=== PATIENT | male | born 1985 | race Caucasian/White ===

== ENCOUNTER 2016-11-18 06:28 | Inpatient (IN) | payer MEDICAID ==
[~2016-11-18] VITALS: Ht 175.3 cm; Wt 78.5 kg
[~2016-11-18 06:28] MED LIST: ALPR1TAB2 PO; PAX10 PO
[2016-11-18 06:35] VITALS: BP 109/75
--- NOTE | 2016-11-18 06:44 | NUR ---
PT TAKEN TO BED 5
--- NOTE | 2016-11-18 06:53 | NUR ---
Dr. Guerra evaluating patient at bedside.
--- NOTE | 2016-11-18 06:54 | NUR ---
CAME IN DUE TO ABDOMINAL PAIN 04/07, AND NAUSEA THIS MORNING. AWAKE, ALERT, ORIENTED. DENIES VOMITING NOR DIARRHEA. EXAMINED BY DR. WEBER AT BEDSIDE.
--- NOTE | 2016-11-18 06:57 | NUR ---
Dr. Galvan evaluating patient at bedside.
--- NOTE | 2016-11-18 06:58 | NUR ---
PATIENT REPORT ENDORSED TO URSZULA GONSALES FOR CONTINUITY OF CARE.
[2016-11-18] MEDS ORDERED: NACL 0.9% 1,000 ML IV ONE (07:02)
[2016-11-18] MEDS ORDERED: LORazepam 1 MG TAB PO ONE (07:05)
--- NOTE | 2016-11-18 07:39 | NUR ---
US AT BEDSIDE.
[2016-11-18 07:49] LABS: BASOPHILS # (AUTO) 0.1 K/uL (0.00-0.22); BASOPHILS % (AUTO) 1.1 % (0.0-2.0); EOSINOPHILS # (AUTO) 0.3 K/uL (0-0.4); EOSINOPHILS % (AUTO) 2.6 % (0.0-4.0); HEMATOCRIT 33.2 % (36-52); HEMOGLOBIN 11.3 g/dL (12.0-18.0); LYMPHOCYTES # (AUTO) 1.4 K/uL (2.0-11.5); LYMPHOCYTES % (AUTO) 12.5 % (20.5-51.1); MEAN CORPUSCULAR HEMOGLOBIN 32 pg (27-31); MEAN CORPUSCULAR HGB CONC 34 g/dL (33-37); MEAN CORPUSCULAR VOLUME 95 fL (80-94); MONOCYTES # (AUTO) 0.8 K/uL (0.8-1.0); MONOCYTES % (AUTO) 7.5 % (1.7-9.3); NEUTROPHILS # (AUTO) 8.2 K/uL (1.8-7.7); NEUTROPHILS % (AUTO) 76.3 % (42.2-75.2); PLATELET COUNT (AUTO) 568 K/uL (140-450); RED BLOOD CELL COUNT(AUTO) 3.51 MIL/uL (4.20-6.10); RED CELL DISTRIBUTION WIDTH 14.2 % (11.6-13.7); WHITE BLOOD COUNT (AUTO) 10.8 K/uL (4.8-10.8)
[2016-11-18 07:59] LABS: ANION GAP 9.6 (8-16); CALCIUM 9.2 mg/dL (8.5-10.1); CARBON DIOXIDE 31.5 mmol/L (21-32); CREATININE 0.8 mg/dL (0.6-1.3); POTASSIUM 3.1 mmol/L (3.5-5.1)
[2016-11-18 08:05] LABS: ALBUMIN 3.8 g/dL (3.4-5.0); TOTAL BILIRUBIN 0.4 mg/dL (0.0-1.0); TOTAL PROTEIN, SERUM 7.6 g/dL (6.4-8.2)
[2016-11-18] MEDS ORDERED: MORPHINE SULFATE 2 MG/ML SYR IVP ONE (08:05)
[2016-11-18] MEDS ORDERED: ONDANSETRON 4 MG/2 ML VIAL IVP ONE (08:05)
[2016-11-18] MEDS ORDERED: POTASSIUM CHLORIDE 20% 40 MEQ/15 ML UDC PO ONE (08:10)
[2016-11-18 08:24] LABS: APPEARANCE,URINE HAZY (CLEAR); BILIRUBIN,URINE NEGATIVE (NEGATIVE); BLOOD, URINE NEGATIVE (NEGATIVE); COLOR,URINE ORANGE (YELLOW); LEUKOCYTE ESTERASE ,URINE NEGATIVE (NEGATIVE); NITRITE, URINE NEGATIVE (NEGATIVE); PH,URINE 7.5 (5.0-9.0); PROTEIN,URINE TRACE (NEGATIVE); UGLUCOSE NEGATIVE (NEGATIVE)
[2016-11-18 08:26] LABS: BACTERIA,URINE OCCASSIONAL /HPF (None Seen); RBC,URINE NONE SEEN /HPF (0-5); SQUAMOUS EPITHELIAL CELL,UR 0-3 /LPF (0-3 (FEW)); WBC,URINE 0-3 /HPF (0-5)
[2016-11-18 08:28] LABS: MUCUS,URINE 1+ /LPF (None Seen)
--- NOTE | 2016-11-18 08:34 | NUR ---
CALLED TO GIVE REPORT TO MST RN; RN STATES WILL CALL BACK IN 5 MINUTES FOR REPORT; WILL CONTINUE TO MONITOR PT.
--- NOTE | 2016-11-18 08:54 | NUR ---
REPORT GIVEN TO JORGE RN; AWAITING ADMIT ORDERS TO BRING PT TO FLOOR; VSS AT THIS TIME; RR EVEN/UNLABORED; WILL CONTINUE TO MONITOR PT.
--- NOTE | 2016-11-18 09:49 | NUR ---
PT APPEARS TO BE RESTING COMFORTABLY IN BED; VSS AT THIS TIME; RR EVEN/UNLABORED; NO ACUTE DISTRESS NOTED; AWAITING ADMIT ORDERS; WILL CONTINUE TO MONITOR PT.
--- NOTE | 2016-11-18 10:32 | NUR ---
Patient will be admitted to care of DR. Jian ANDERSON. Admited to TELEMETRY. Will go to room 112B. Belongings list completed. Report to DRU PATEL.
[2016-11-18 10:45] VITALS: BP 120/85
[2016-11-18] MEDS ORDERED: ACETAMINOPHEN 325 MG TAB PO PRN (10:50)
[2016-11-18] MEDS ORDERED: ALPRAZOLAM 1 MG PO SCH (10:50)
[2016-11-18] MEDS ORDERED: HYDROcodone/APAP 10/325 MG 1 TAB TAB PO PRN (10:50)
--- NOTE | 2016-11-18 11:00 | NUR ---
Admitted from ED, with chief complaint of ABDOMINAL PAIN THAT STARTED THIS MORNING. PT AAOX4. NO SOB NOTED. NO C/O PAIN AT THIS TIME. IV TO RT AC PATENT AND INTACT. CHEST CLEAR. ABDOMEN SOFT, BOWEL SOUNDS PRESENT. LEFT KNEE SWELLING, NON-PITTING NOTED. PT IS S/P LEFT KNEE ARTHROSCOPY 3 WEEKS AGO IN [facility]. LEFT LOWER EXTREMITY ELEVATED WITH PILLOW. PT IS A31 y/o ,Male, Cooperative,oriented to call light, bed, phone,television, bathroom, smoking policy,visiting hours, procedures, ID bracelet on. Belongings list checked. INSTRUCTED PT TO CALL FOR ASSISTANCE, CALL LIGHT WITHIN REACH, PT VERBALIZED UNDERSTANDING.
[2016-11-18 12:00] VITALS: BP 127/83
[2016-11-18] MEDS ORDERED: PARoxetine 10 MG TAB PO SCH (12:20)
[2016-11-18 12:51] LABS: ALCOHOL, BLOOD < 3 mg/dL (<3); CHOL/HDL RATIO 4.5 (1-4.5); CHOLESTEROL 116 mg/dL (<200); HDL CHOLESTEROL 26 mg/dL (40-60); LDL (CALC) 75 mg/dL (60-100); TRIGLYCERIDES 77 mg/dL (30-150)
[2016-11-18 12:53] LABS: AMPHETAMINE, URINE NEG. ng/ml (NEG <=1000); BARBITURATE, URINE NEG. ng/ml (NEG <=200); BENZODIAZEPINE, URINE NEG. ng/mL (NEG <=200); CANNABINOID, URINE NEG. ng/mL (NEG <=50); COCAINE, URINE NEG. ng/mL (NEG <=300); OPIATE, URINE NEG. ng/mL (NEG <=2000); PHENCYCLIDINE SCREEN,URINE NEG. ng/mL (NEG <=25)
--- NOTE | 2016-11-18 13:00 | NUR ---
Remy TATE CAME TO SEE PT. NEW ORDERS GIVEN.
[2016-11-18] MEDS: MORPHINE SULFATE 2 MG/ML SYR IVP PRN ×2 (13:07→18:24)
[2016-11-18] MEDS: DEXT 5% /NACL 0.9% 1,000 ML IV SCH ×2 (13:09→21:27)
[2016-11-18] MEDS: ALPRAZolam 0.5 MG TAB PO PRN ×2 (13:18→20:08)
--- NOTE | 2016-11-18 15:00 | NUR ---
PT TOLERATED CLEAR LIQUIDS, NO N&V NOTED.
[2016-11-18 16:00] VITALS: BP 136/87
--- NOTE | 2016-11-18 17:55 | NUR ---
PT SLEEPING COMFORTABLY. NO SOB NOTED. NO SIGNS OF PAIN. PT'S FATHER AT THE BEDSIDE VISITING.
[2016-11-18] MEDS: ONDANSETRON 4 MG/2 ML VIAL IVP PRN (18:37)
--- NOTE | 2016-11-18 19:01 | NUR ---
PT AWAKE, NO SOB NOTED. ABDOMINAL PAIN SUBSIDING, PT JUST HAD PAIN MEDS 30 MINS AGO. WILL ENDORSE TO NEXT SHIFT NURSE FOR CONTINUITY OF CARE.
--- NOTE | 2016-11-18 19:30 | NUR ---
RECEIVED REPORT FROM DAY RN AT BEDSIDE, PATIENT IS AAO X4 RESTING IN BED, ON ROOM AIR, NO SOB OR SIGN OF DISTRESS AT THIS TIME, IV TO RAC PATENT AND INTACT, DENIES PAIN, DISCUSSED PLAN OF CARE WITH THE PATIENT, PATIENT VERBALIZED UNDERSTANDING, SAFETY MEASURES CHECKED, CALL LIGHT WITHIN REACH. WILL CONTINUE TO MONITOR.
--- NOTE | 2016-11-18 21:00 | NUR ---
ADMINISTERED XANAX PER MD ORDER, PATIENT RESTING IN BED WITH FAMILY AT BEDSIDE, NO SOB OR SIGN OF DISTRESS AT THIS TIME, CALL LIGHT WITHIN REACH. WILL CONTINUE TO MONITOR.
[2016-11-19] VITALS: BP 112/71
--- NOTE | 2016-11-19 00:10 | NUR ---
VITAL SIGNS STABLE, NO SOB OR SIGN OF DISTRESS AT THIS TIME, CALL LIGHT WITHIN REACH. WILL CONTINUE TO MONITOR.
--- NOTE | 2016-11-19 01:56 | NUR ---
PATIENT SLEEPING, NO SOB OR SIGN OF DISTRESS AT THIS TIME, CALL LIGHT WITHIN REACH. WILL CONTINUE TO MONITOR
--- NOTE | 2016-11-19 04:00 | NUR ---
PATIENT SLEEPING, NO SOB OR SIGN OF DISTRESS AT THIS TIME, CALL LIGHT WITHIN REACH. WILL CONTINUE TO MONITOR.
[2016-11-19] MEDS: HYDROcodone/APAP 5/325 MG 1 TAB TAB PO PRN ×2 (04:33→20:36)
[2016-11-19] MEDS: ALPRAZolam 0.5 MG TAB PO PRN ×3 (04:34→20:37)
[2016-11-19 05:58] LABS: BASOPHILS # (AUTO) 0.1 K/uL (0.00-0.22); BASOPHILS % (AUTO) 1.8 % (0.0-2.0); EOSINOPHILS # (AUTO) 0.3 K/uL (0-0.4); EOSINOPHILS % (AUTO) 4.4 % (0.0-4.0); HEMATOCRIT 31.6 % (36-52); HEMOGLOBIN 10.4 g/dL (12.0-18.0); LYMPHOCYTES # (AUTO) 1.8 K/uL (2.0-11.5); LYMPHOCYTES % (AUTO) 24.1 % (20.5-51.1); MEAN CORPUSCULAR HEMOGLOBIN 31 pg (27-31); MEAN CORPUSCULAR HGB CONC 33 g/dL (33-37); MEAN CORPUSCULAR VOLUME 95 fL (80-94); MONOCYTES # (AUTO) 0.7 K/uL (0.8-1.0); MONOCYTES % (AUTO) 9.1 % (1.7-9.3); NEUTROPHILS # (AUTO) 4.7 K/uL (1.8-7.7); NEUTROPHILS % (AUTO) 60.6 % (42.2-75.2); PLATELET COUNT (AUTO) 482 K/uL (140-450); RED BLOOD CELL COUNT(AUTO) 3.32 MIL/uL (4.20-6.10); RED CELL DISTRIBUTION WIDTH 13.7 % (11.6-13.7); WHITE BLOOD COUNT (AUTO) 7.6 K/uL (4.8-10.8)
[2016-11-19 06:17] LABS: ALBUMIN 3.4 g/dL (3.4-5.0); ANION GAP 9.4 (8-16); CALCIUM 8.8 mg/dL (8.5-10.1); CARBON DIOXIDE 29.2 mmol/L (21-32); CREATININE 0.7 mg/dL (0.6-1.3); POTASSIUM 3.6 mmol/L (3.5-5.1); TOTAL BILIRUBIN 0.4 mg/dL (0.0-1.0)
[2016-11-19] MEDS: DEXT 5% /NACL 0.9% 1,000 ML IV SCH ×2 (06:50→16:50)
[2016-11-19 07:14] LABS: AMYLASE 94 U/L (25-115); LIPASE 404 U/L (73-393)
--- NOTE | 2016-11-19 07:25 | NUR ---
ENDORSED PATIENT TO DAY RN AT BEDSIDE, PATIENT IN STABLE CONDITION
--- NOTE | 2016-11-19 07:27 | NUR ---
REPORT RECEIVED FROM LOAN COORDINATOR RN, PT SLEEPING QUIETLY, RESP EVEN UNLABORED, SKIN COLOR WNL, IVF INFUSING, SITE CLEAR, CALL SHARP WITHIN REACH, ALL SAFETY MEASURES MET, WILL CONTINUE TO MONITOR.
--- NOTE | 2016-11-19 07:58 | NUR ---
PATIENT HAS BEEN SCREENED AND CATEGORIZED HIGH NUTRITION RISK. PATIENT WILL BE SEEN WITHIN 1-2 DAYS OF ADMISSION. 11/19/16-11/20/[address]
[2016-11-19 08:00] VITALS: BP 125/73
[2016-11-19] MEDS: PARoxetine 10 MG TAB PO SCH ×2 (08:44→11:18)
--- NOTE | 2016-11-19 09:30 | NUR ---
PT TAKEN TO NUCLEAR MED FOR HIDASCAN IN WHEELCHAIR AT THIS TIME
--- NOTE | 2016-11-19 11:05 | NUR ---
PT BACK FROM HIDA SCAN, PT OK TO EAT AND TAKE MEDS PER PREVIOUS ORDER. PT TO EAT NOW AND RETURN TO SCAN IN 1HR PER NUCLEAR MED NURSE, MARYLU GIVEN NOW.
[2016-11-19] MEDS: ONDANSETRON 4 MG/2 ML VIAL IVP PRN ×3 (11:17→20:47)
--- NOTE | 2016-11-19 11:44 | NUR ---
PT TAKEN BACK TO NUCLEAR MED ADDITIONAL SCAN VIA WC BY RAYO GONSALES
--- NOTE | 2016-11-19 13:02 | NUR ---
PT SITTING UP WATCHING TV, STATES HE FEELS ANXIOUS BEING HERE IN HOSPITAL, PRN XANAX GIVEN AT THIS TIME
--- NOTE | 2016-11-19 14:13 | NUR ---
PT REQUESTS REGULAR FOOD, STATES HE IS HUNGRY, DR ANDERSON, A PAGED TO CLARIFY DIET POST HIDASCAN. PT UP OUT OF BED TO BATHROOM WITH SLOW STEADY GAIT.
--- NOTE | 2016-11-19 14:43 | NUR ---
11/19/16 RD INITIAL ASSESSMENT COMPLETED PLEASE REFER TO NUTRITION ASSESSMENT UNDER CARE ACTIVITY FOR ESTIMATED NUTRITIONAL NEEDS. RD RECOMMENDATIONS: 1. CONTINUE ON CLEAR LIQUID DIET TOLERATED. 2. WHEN MEDICALLY APPROPRIATE ADVANCE DIET TO REGULAR 3. RD WILL F/U 3-5 DAYS; MODERATE RISK. SANDRA JERNIGAN RD
--- NOTE | 2016-11-19 15:33 | NUR ---
PT RESTING QUIETLY IN NAD, STATES HE FEELS NAUSESOUS, PRN ZOFRAN GIVEN AT THIS TIME, VSS, CALL SHARP WITHIN REACH, SAFETY MEASURES ENSURED, WILL CONTINUE TO MONITOR
[2016-11-19 16:00] VITALS: BP 122/80
[2016-11-19] MEDS: MORPHINE SULFATE 2 MG/ML SYR IVP PRN ×2 (17:29→21:58)
--- NOTE | 2016-11-19 18:05 | NUR ---
PT RESTING QUIETLY IN NAD, WATCHING TV WITH FATHER AT BEDSIDE, APPEARS COMFORTABLE SMILING, STATES PAIN IS BETTER AFTER MORPHINE, BUT GIVES PAIN NUMBER 6/10, IVF INFUSING, IV SITE CLEAR, CALL SHARP WITHIN REACH, SAFETY MEASURES IN PLACE, WILL CONTINUE TO MONITOR
--- NOTE | 2016-11-19 19:23 | NUR ---
RECEIVED PT IN STABLE CONDITION. NO SOB, NO SIGNS OF DISTRESS. FAMILY AT BEDSIDE. PT IS AOX4, AMBULATES WITH CANE/WALKER ASSIST. VS STABLE ON ROOM AIR. IV TO RT AC 20G PATENT, ASYMPTOMATIC, INTACT, IVF RUNNING. SKIN INTACT. PT S/P LT KNEE ARTHROPLASTY 3 WEEKS AGO, SWELLING NOTED TO LT KNEE. PT C/O PAIN, ANXIETY, AND NAUSEA. WILL MEDICATE PER MD ORDER. PLAN OF CARE DISCUSSED WITH PT. SAFETY MEASURES IN PLACE. CALL LIGHT WITHIN REACH. WILL CONTINUE TO MONITOR.
--- NOTE | 2016-11-19 19:23 | NUR ---
REPORT GIVEN TO PRACTICING MD ANESTHESIOLOGIST RN, PT REMAINS IN STABLE CONDITION.
--- NOTE | 2016-11-19 20:47 | NUR ---
MEDICATED PT FOR PAIN, NAUSEA, AND ANXIETY. PT TOLERATED WELL. NO SOB, NO SIGNS OF DISTRESS. IV SITE ASYMPTOMATIC, INTACT, PATENT, IVF RUNNING. PLAN OF CARE DISCUSSED WITH PT. SAFETY MEASURES IN PLACE. CALL LIGHT WITHIN REACH. WILL CONTINUE TO MONITOR.
--- NOTE | 2016-11-19 21:58 | NUR ---
PT C/O PAIN WITH NO RELIEF FROM NORCO, VS STABLE. MEDICATED PT PER MD ORDER. PT TOLERATED WELL. NO SOB, NO SIGNS OF DISTRESS. IV SITE ASYMPTOMATIC, INTACT, PATENT, IVF RUNNING. PLAN OF CARE DISCUSSED WITH PT. SAFETY MEASURES IN PLACE. CALL LIGHT WITHIN REACH. WILL CONTINUE TO MONITOR.
--- NOTE | 2016-11-19 23:08 | NUR ---
PT C/O ANXIETY WITH NO RELIEF FROM XANAX AND STATED HE FELT LIKE HE WAS GOING TO HAVE A PANIC ATTACK. PT REQUESTED ADDITIONAL MEDICATION FOR ANXIETY. PAGED MD Jian ANDERSON. WAITING FOR CALL BACK.
[2016-11-19] MEDS ORDERED: LORazepam 1 MG TAB PO PRN (23:15)
--- NOTE | 2016-11-19 23:15 | NUR ---
SPOKE WITH MD Jian ANDERSON. GAVE ORDERS FOR ATIVAN 1 MG PO ONCE. WILL F/U.
[2016-11-20] VITALS: BP 139/90
--- NOTE | 2016-11-20 | NUR ---
VS STABLE ON ROOM AIR. MEDICATED PT FOR ANXIETY PER MD ORDER. PT TOLERATED WELL. NO SOB, NO SIGNS OF DISTRESS. IV SITE ASYMPTOMATIC, INTACT, PATENT, IVF RUNNING. PLAN OF CARE DISCUSSED WITH PT. SAFETY MEASURES IN PLACE. CALL LIGHT WITHIN REACH. WILL CONTINUE TO MONITOR.
--- NOTE | 2016-11-20 02:22 | NUR ---
PT ASLEEP IN BED. NO SOB, NO SIGNS OF DISTRESS. IV SITE ASYMPTOMATIC, INTACT, PATENT, IVF RUNNING. SAFETY MEASURES IN PLACE. CALL LIGHT WITHIN REACH. WILL CONTINUE TO MONITOR.
[2016-11-20] MEDS: DEXT 5% /NACL 0.9% 1,000 ML IV SCH (04:30)
[2016-11-20 06:58] LABS: BASOPHILS # (AUTO) 0.1 K/uL (0.00-0.22); BASOPHILS % (AUTO) 1.2 % (0.0-2.0); EOSINOPHILS # (AUTO) 0.4 K/uL (0-0.4); EOSINOPHILS % (AUTO) 4.4 % (0.0-4.0); HEMOGLOBIN 10.4 g/dL (12.0-18.0); LYMPHOCYTES # (AUTO) 1.7 K/uL (2.0-11.5); MEAN CORPUSCULAR HEMOGLOBIN 31 pg (27-31); MEAN CORPUSCULAR HGB CONC 32 g/dL (33-37); MEAN CORPUSCULAR VOLUME 94 fL (80-94); MONOCYTES # (AUTO) 0.8 K/uL (0.8-1.0); MONOCYTES % (AUTO) 9.2 % (1.7-9.3); NEUTROPHILS # (AUTO) 5.3 K/uL (1.8-7.7); NEUTROPHILS % (AUTO) 64.2 % (42.2-75.2); PLATELET COUNT (AUTO) 506 K/uL (140-450); RED BLOOD CELL COUNT(AUTO) 3.39 MIL/uL (4.20-6.10); RED CELL DISTRIBUTION WIDTH 14.2 % (11.6-13.7); WHITE BLOOD COUNT (AUTO) 8.3 K/uL (4.8-10.8)
[2016-11-20 07:19] LABS: ANION GAP 8.1 (8-16); CALCIUM 8.8 mg/dL (8.5-10.1); CARBON DIOXIDE 31.4 mmol/L (21-32); CREATININE 0.8 mg/dL (0.6-1.3); POTASSIUM 3.5 mmol/L (3.5-5.1)
--- NOTE | 2016-11-20 07:21 | NUR ---
ENDORSED PT IN STABLE CONDITION TO DRU CARTER. ALL NEEDS HAVE BEEN MET AT THIS TIME.
[2016-11-20 07:23] LABS: AMYLASE 126 U/L (25-115); LIPASE 494 U/L (73-393)
--- NOTE | 2016-11-20 07:25 | NUR ---
REPORT RECEIVED FROM PRINCIPAL SECRETARY RN, PT SLEEPING QUIETLY, RESP EVEN UNLABORED IN NAD, SKIN COLOR WNL, IVF INFUSING WELL, SITE CLEAR, NO C/O PAIN OR DISCOMFORT, CALL SHARP WITHIN REACH, BED LOCKED IN LOW POSITION, SIDE RAILS UP X2, WILL CONTINUE TO MONITOR
[2016-11-20 08:00] VITALS: BP 100/57
[2016-11-20] MEDS: PARoxetine 10 MG TAB PO SCH (09:08)
--- NOTE | 2016-11-20 09:52 | NUR ---
PT SLEEPING IN BED. NO S/S OF ACUTE DISTRESS. PT TOLERATED AM MEDS WELL. CALL LIGHT WITHIN REACH. SAFETY MEASURES ENSURED. WILL CONTINUE TO MONITOR.
[2016-11-20] MEDS: ALPRAZolam 0.5 MG TAB PO PRN (11:04)
--- NOTE | 2016-11-20 11:10 | NUR ---
PT C/O ANXIETY, PRN XANAX GIVEN AT THIS TIME, DC INSTRUCTION GIVEN AND EXPLAINED TO PT, PT EXPRESSED FULL UNDERSTANDING, PT REQUESTS RX MEDS FOR NAUSEA AND ANXIETY, PT STATES HE IS NOT ABLE TO GET A HOLD OF HIS PCM UNTIL SATURDAY, HE WANTS 3 DAY SUPPLY OF ANTI ANXIETY AND NAUSEA MED, DR ANDERSON PAGED, DR ANDERSON REQUESTS PT'S PHARMACY TO CALL FOR PRISCRIPTION, PHONE NUMBER PROVIDED TO PT. PT'S FATHER HERE TO TAKE PT HOME.
== END 2016-11-20 11:20 | disposition home or self-care (01) | DRG 282 ==
LOC: MED 06:28 → MTU 10:20
PROVIDERS: ADMIT Preventive Medicine Preventive Medicine/Occupational Environmental Medicine; ATTEND Preventive Medicine Preventive Medicine/Occupational Environmental Medicine
DX: K85.90 Acute pancreatitis without necrosis or infection, unspecified (principal); F32.9 Major depressive disorder, single episode, unspecified; E87.6 Hypokalemia; F41.1 Generalized anxiety disorder; J45.909 Unspecified asthma, uncomplicated; D64.9 Anemia, unspecified; D75.89 Other specified diseases of blood and blood-forming organs; Z79.899 Other long term (current) drug therapy
CPT/HCPCS: 36415; 76700; 78445; 80048; 80053; 80305; 81001; 82150; 83690; 85025; 87081; 96361; 96374; 96375; 99285; A9510; G0482; J2270; J2405; J7030; J7042; Q0092

== ENCOUNTER 2017-05-17 03:00 | Emergency (ER) | payer MEDICAID, MEDICARE ==
[~2017-05-17] VITALS: Ht 175.3 cm; Wt 81.6 kg
--- NOTE | 2017-05-17 03:00 | NUR ---
BIB WHEELCHAIR TO ER BED 8
[2017-05-17 03:08] VITALS: BP 136/84
--- NOTE | 2017-05-17 03:13 | NUR ---
Patient being evaluated by physician at bedside.
--- NOTE | 2017-05-17 03:15 | NUR ---
PICKED UP PT OUTSIDE VIA WHEELCHAIR IN HIS FATHERS CAR, PER PT HIS LEGS IS WEAK, PT AB[facility], PT AAO, NO DISTRESS NOTED, NOTED MILD WEAKNESS ON BOTH LOWER EXTREMITIES, NO EDEMA NOTED, NOTED DRYNESS ON FACE, WITH 5 SHIRLEY ON ABDOMEN PER PT HE HAS SELF INFLICTED STUB WOUNDS, CLAIMED IM HALLUCINATING IF IM NOT GETTING ENOUGH SLEEP, PER NO VOMITTING BUT WITH NAUSEA AT HOME, PT REQUESTING ANXIETY MEDS AT THIS TIME, WILL INFORM MD Addendum: 05/17/17 at 0525 by [email or web address] SMALL DRY HEALED CUT ON ABDOMEN 5X, NOT STUB WOUNDS
--- NOTE | 2017-05-17 03:17 | NUR ---
DR. RIVAS AT BEDSIDE, HE REMOVED STITCHES ON ABDOMEN 5 SHIRLEY, NO BLEEDING NOTED,
--- NOTE | 2017-05-17 03:24 | NUR ---
LAB AT BEDSIDE
[2017-05-17 03:30] LABS: BASOPHILS # (AUTO) 0.3 K/uL (0.00-0.22); BASOPHILS % (AUTO) 3.7 % (0.0-2.0); EOSINOPHILS # (AUTO) 0.1 K/uL (0-0.4); EOSINOPHILS % (AUTO) 1.1 % (0.0-4.0); HEMATOCRIT 37.5 % (36-52); HEMOGLOBIN 12.1 g/dL (12.0-18.0); LYMPHOCYTES # (AUTO) 1.5 K/uL (2.0-11.5); LYMPHOCYTES % (AUTO) 21.6 % (20.5-51.1); MEAN CORPUSCULAR HEMOGLOBIN 31 pg (27-31); MEAN CORPUSCULAR HGB CONC 32 g/dL (33-37); MEAN CORPUSCULAR VOLUME 95 fL (80-94); MONOCYTES # (AUTO) 0.6 K/uL (0.8-1.0); MONOCYTES % (AUTO) 8.2 % (1.7-9.3); NEUTROPHILS # (AUTO) 4.3 K/uL (1.8-7.7); NEUTROPHILS % (AUTO) 65.4 % (42.2-75.2); PLATELET COUNT (AUTO) 293 K/uL (140-450); RED BLOOD CELL COUNT(AUTO) 3.97 MIL/uL (4.20-6.10); RED CELL DISTRIBUTION WIDTH 13.3 % (11.6-13.7); WHITE BLOOD COUNT (AUTO) 6.8 K/uL (4.8-10.8)
--- NOTE | 2017-05-17 03:39 | NUR ---
PT WENT TO CT VIA WHEELCHAIR
[2017-05-17 03:43] LABS: ANION GAP 10.3 (8-16); CARBON DIOXIDE 28.1 mmol/L (21-32); CREATININE 0.6 mg/dL (0.7-1.3); POTASSIUM 3.4 mmol/L (3.5-5.1)
[2017-05-17 03:49] LABS: ALBUMIN 3.9 g/dL (3.4-5.0); TOTAL BILIRUBIN 0.4 mg/dL (0.0-1.0)
[2017-05-17] MEDS ORDERED: oxyCODONE/APAP 5/325 MG 1 TAB TAB PO ONE (03:55)
[2017-05-17] MEDS ORDERED: LORazepam 1 MG TAB PO ONE (03:55)
[2017-05-17 05:02] LABS: APPEARANCE,URINE CLEAR (CLEAR); BILIRUBIN,URINE NEGATIVE (NEGATIVE); BLOOD, URINE NEGATIVE (NEGATIVE); COLOR,URINE YELLOW (YELLOW); LEUKOCYTE ESTERASE ,URINE NEGATIVE (NEGATIVE); NITRITE, URINE NEGATIVE (NEGATIVE); PH,URINE 6.5 (5.0-9.0); UGLUCOSE NEGATIVE (NEGATIVE)
--- NOTE | 2017-05-17 05:03 | NUR ---
WILL INFORM MD PT C/O ANXIETY AND PAIN AGAIN
--- NOTE | 2017-05-17 05:07 | NUR ---
DR. RIVAS AT BEDSIDE
[2017-05-17 05:08] LABS: BARBITURATE, URINE NEG. ng/ml (NEG <=200); BENZODIAZEPINE, URINE POS. ng/mL (NEG <=200); CANNABINOID, URINE NEG. ng/mL (NEG <=50); COCAINE, URINE NEG. ng/mL (NEG <=300); OPIATE, URINE NEG. ng/mL (NEG <=2000); PHENCYCLIDINE SCREEN,URINE NEG. ng/mL (NEG <=25)
[2017-05-17] MEDS ORDERED: KETOROLAC 60 MG/2 ML VIAL IM ONE (05:10)
--- NOTE | 2017-05-17 05:24 | NUR ---
DR RIVAS AT BEDSIDE AGAIN
[2017-05-17 05:40] VITALS: BP 122/84
--- NOTE | 2017-05-17 05:40 | NUR ---
Patient discharged with v/s stable. Written and verbal after care instructions given and explained. Patient alert, oriented and verbalized understanding of instructions. ASSISTED TO THE CAR VIA WHEELCHAIR. All questions addressed prior to discharge. ID band removed. Patient advised to follow up with PMD. Rx of BACTRIM AND ATIVAN given. Patient educated on indication of medication including possible reaction and side effects. Opportunity to ask questions provided and answered. ENCOURAGED FLUID INTAKE AND PT AGREED WITH IT.
== END 2017-05-17 05:49 | disposition home or self-care (01) ==
LOC: MED 03:00
DX: N12 Tubulo-interstitial nephritis, not specified as acute or chronic (principal); F41.1 Generalized anxiety disorder; J45.909 Unspecified asthma, uncomplicated
CPT/HCPCS: 36415; 74176; 80053; 80305; 81003; 82150; 83615; 83690; 85025; 87086; 96372; 99285; J1885

== ENCOUNTER 2018-09-04 01:04 | Inpatient (IN) | payer BC, MEDICARE ==
[~2018-09-04] VITALS: Ht 165.1 cm; Wt 63.5 kg
--- NOTE | 2018-09-04 01:06 | NUR ---
PT TAKEN TO BED 5
[2018-09-04 01:10] VITALS: BP 133/86
--- NOTE | 2018-09-04 01:10 | NUR ---
PT BIB EMS FOR HALLUCINATIONS. PER FATHER, PT WAS SHAKING AND SEEING PEOPLE. FATHER CLAIMS PT HAS HISTORY OF SZ. PT ALERT/ORIENTED AND ANSWERING QUESTIONS. PT STATES HE DOES NOT REMEMBER WHAT HAPPENED. PER DAD, PT HAD 2 SEIZURES AT HOME LASTING 10-15 SECONDS. UPON ARRIVAL TO ED PT HAD URINATED UPON HIMSELF. SKIN IS PINK/WARM/DRY; LUNGS CLEAR BL; HR EVEN AND REGULAR; PATIENT STATES PAIN OF 0/10 AT THIS TIME; PATIENT POSITIONED FOR COMFORT; HOB ELEVATED; BEDRAILS UP X2; BED DOWN. ER MD MADE AWARE OF PT STATUS. SEIZURE PRECATIONS IN PLACE.
--- NOTE | 2018-09-04 01:23 | NUR ---
X-Ray at bedside.
--- NOTE | 2018-09-04 01:24 | NUR ---
PT UNABLE TO VOID AT THIS TIME
--- NOTE | 2018-09-04 01:38 | NUR ---
SEIZURE PRECAUTIONS IN PLACE.
[2018-09-04 01:44] LABS: BASOPHILS % (AUTO) 0.3 % (0.0-2.0); EOSINOPHILS % (AUTO) 0.1 % (0.0-4.0); HEMATOCRIT 43.3 % (36-52); HEMOGLOBIN 14.6 g/dL (12.0-18.0); LYMPHOCYTES # (AUTO) 0.2 K/uL (2.0-11.5); MEAN CORPUSCULAR HEMOGLOBIN 33 pg (27-31); MEAN CORPUSCULAR HGB CONC 34 g/dL (33-37); MEAN CORPUSCULAR VOLUME 98.1 fL (80-94); MONOCYTES # (AUTO) 0.6 K/uL (0.8-1.0); MONOCYTES % (AUTO) 10.3 % (1.7-9.3); NEUTROPHILS # (AUTO) 5.1 K/uL (1.8-7.7); NEUTROPHILS % (AUTO) 86.6 % (42.2-75.2); RED BLOOD CELL COUNT(AUTO) 4.41 MIL/uL (4.20-6.10); RED CELL DISTRIBUTION WIDTH 13.8 % (11.6-13.7); WHITE BLOOD COUNT (AUTO) 5.9 K/uL (4.8-10.8)
--- NOTE | 2018-09-04 01:44 | NUR ---
Dr. Zapata evaluating patient at bedside.
[2018-09-04 01:46] LABS: ANION GAP 15.8 (8-16); CARBON DIOXIDE 28.6 mmol/L (21-32); CHLORIDE 88 mmol/L (98-107); CREATININE 0.8 mg/dL (0.7-1.3); GFR ARICAN-AMERICAN 144 mL/min (>90); GLUCOSE 129 mg/dL (74-106); POTASSIUM 3.4 mmol/L (3.5-5.1); SODIUM SERUM 129 mmol/L (136-145); UREA NITROGEN, BLOOD 22 mg/dL (7-18)
[2018-09-04] MEDS ORDERED: levETIRAcetam 1,000 MG in NACL 0.9% 100 ML IV ONE (01:50)
[2018-09-04] MEDS ORDERED: KETOROLAC 30 MG/ML VIAL IVP ONE (01:50)
[2018-09-04] MEDS ORDERED: LORazepam 2 MG/ML VIAL IVP ONE (01:50)
[2018-09-04 01:54] LABS: ALBUMIN 4.2 g/dL (3.4-5.0); ASPARTATE AMINOTRANSFERASE 150 U/L (15-37)
[2018-09-04 01:57] LABS: ACETAMINOPHEN < 0.5 ug/ml (10-30); SALICYLATE < 2.8 mg/dL (2.8-20.0)
[2018-09-04 02:06] LABS: BARBITURATE, URINE NEG. ng/ml (NEG <=200); BENZODIAZEPINE, URINE NEG. ng/mL (NEG <=200); CANNABINOID, URINE NEG. ng/mL (NEG <=50); COCAINE, URINE NEG. ng/mL (NEG <=300); OPIATE, URINE NEG. ng/mL (NEG <=2000); PHENCYCLIDINE SCREEN,URINE NEG. ng/mL (NEG <=25)
[2018-09-04 02:06] LABS: LYMPHOCYTES % (AUTO) 2.7 % (20.5-51.1); PLATELET COUNT (AUTO) 93 K/uL (140-450)
[2018-09-04 02:07] LABS: APPEARANCE,URINE SL CLOUDY (CLEAR); BILIRUBIN,URINE 2+ (NEGATIVE); BLOOD, URINE NEGATIVE (NEGATIVE); COLOR,URINE RED (YELLOW); LEUKOCYTE ESTERASE ,URINE TRACE (NEGATIVE); NITRITE, URINE POSITIVE (NEGATIVE); PH,URINE 8.5 (5.0-9.0); UGLUCOSE TRACE (NEGATIVE)
[2018-09-04] MEDS ORDERED: levETIRAcetam 100 MG/ML VIAL IV ONE (02:08)
[2018-09-04] MEDS ORDERED: NACL 0.9% 1,000 ML IV ONE (02:10)
[2018-09-04 02:15] LABS: RBC,URINE 11-20 (MOD) /HPF (0-5); TRIPLE PHOSPHATE CRYSTAL,UR 0-10 /HPF (None Seen)
[2018-09-04 02:16] LABS: HYALINE CASTS, URINE 0-10 /LPF (None Seen)
--- NOTE | 2018-09-04 02:30 | NUR ---
Patient appears to be resting comfortably in bed. Vital Signs within normal limits. Respirations even and unlabored. NO SEIZURE ACTIVITY NOTED.
[2018-09-04] MEDS ORDERED: MORPHINE SULFATE 4 MG/ML SYR IVP ONE (03:10)
[2018-09-04] MEDS ORDERED: ONDANSETRON 4 MG/2 ML VIAL IVP ONE (03:10)
--- NOTE | 2018-09-04 03:45 | NUR ---
PT TAKEN TO CT
[2018-09-04] MEDS ORDERED: DOCUSATE SODIUM 100 MG GELCAP PO PRN (04:25)
[2018-09-04] MEDS ORDERED: MORPHINE SULFATE 2 MG/ML SYR IVP PRN ×2 (04:25→08:35)
[2018-09-04] MEDS ORDERED: LORazepam 2 MG/ML VIAL IVP PRN ×2 (04:25→07:05)
[2018-09-04] MEDS ORDERED: ACETAMINOPHEN 325 MG TAB PO PRN (04:25)
[2018-09-04] MEDS ORDERED: cefTRIAXone 1,000 MG VIAL ONE (04:27)
[2018-09-04] MEDS ORDERED: ALBUTEROL SULFATE/IPRATROPIU 3 ML SOL IH PRN (05:00)
[2018-09-04 05:04] LABS: CHOL/HDL RATIO 1.8 (1-4.5); MAGNESIUM 2.3 mg/dL (1.8-2.4); PHOSPHORUS 2.8 mg/dL (2.5-4.9); THYROID STIMULATING HORMONE 4.93 uIU/mL (0.34-3.74)
--- NOTE | 2018-09-04 05:27 | NUR ---
Patient will be admitted to care of DR CERDA. Admited to TELE. Will go to room 123A. Belongings list completed. Report to DRU PEACE.
[2018-09-04] MEDS ORDERED: NACL 0.9% 1,000 ML IV SCH ×2 (05:30→08:30)
[2018-09-04] MEDS: HYDROcodone/APAP 5/325 MG 1 TAB TAB PO PRN ×3 (05:57→23:21)
[2018-09-04] MEDS: LORazepam 2 MG/ML VIAL IM/IVP PRN ×2 (05:59→12:08)
[2018-09-04 06:00] VITALS: BP 121/85
--- NOTE | 2018-09-04 07:25 | NUR ---
RECEIVED PT REPORT FROM DRAWING KILN SUPERVISOR NURSE. PT IS ASLEEP, NO S/S OF ACUTE DISTRESS OR SOB. FLAKY SKIN NOTED ON PT'S FACE, OTHERWISE SKIN IS INTACT. IV SITE NOTED ON R WRIST, 18 G, INFUSING NS 100 ML/HR. PT IS ON ROOM AIR. SEIZURE PRECAUTIONS AND FALL PRECAUTIONS IN PLACE. CALL LIGHT WITHIN REACH. WILL CONT TO MONITOR PT.
--- NOTE | 2018-09-04 07:35 | NUR ---
GAVE REPORT TO CHARLEY GONSALES DAYSHIFT NURSE AT BEDSIDE FOR CONTINUITY OF CARE, PT IN STABLE CONDITION.
--- NOTE | 2018-09-04 08:00 | NUR ---
PATIENT HAS BEEN SCREENED AND CATEGORIZED LOW NUTRITION RISK. PATIENT WILL BE SEEN WITHIN 7 DAYS OF ADMISSION. 09/10/[address]
[2018-09-04] MEDS: LACTOBACILLUS RHAMNOSUS GG 1 EACH CAP PO SCH (08:38)
[2018-09-04] MEDS: ONDANSETRON 4 MG/2 ML VIAL IM/IVP PRN (08:39)
[2018-09-04] MEDS: levETIRAcetam 500 MG TAB PO SCH ×2 (08:39→21:49)
[2018-09-04] MEDS: DEXT 5% /NACL 0.9% 1,000 ML IV SCH ×3 (08:44→23:00)
[2018-09-04] MEDS: PETROLATUM WHITE 30 GM TUBE TP SCH (09:00)
[2018-09-04] MEDS ORDERED: PARoxetine 10 MG TAB PO SCH (09:00)
[2018-09-04 12:00] VITALS: BP 122/81
[2018-09-04] MEDS: KETOCONAZOLE 2% 15 GM TUBE TP SCH ×2 (12:09→21:50)
--- NOTE | 2018-09-04 12:15 | NUR ---
PT HAVING EKG AT THIS TIME.
--- NOTE | 2018-09-04 12:15 | NUR ---
PT'S TEMP IS 100.1 (TEMPORAL). DOUBLE CHECKED WITH ORAL THERMOMETER, IT SHOWED TEMP 100. COOLING MEASURES IN PLACE (ICE PACKS, LOOSE SHEET, ROOM TEMP TURNED DOWN). WILL NOTIFY
[2018-09-04 13:35] LABS: ALBUMIN 3.5 g/dL (3.4-5.0); ANION GAP 8.5 (8-16); CARBON DIOXIDE 30.7 mmol/L (21-32); CREATININE 0.6 mg/dL (0.7-1.3); POTASSIUM 3.2 mmol/L (3.5-5.1); TOTAL BILIRUBIN 1.7 mg/dL (0.0-1.0)
--- NOTE | 2018-09-04 14:00 | NUR ---
PT SEEN BY DR KAMARA.
--- NOTE | 2018-09-04 14:01 | NUR ---
PT'S TEMP RECHECKED, 98.8 (ORAL) AT THIS TIME. Addendum: 09/04/18 at 1539 by Valarie Rizvi RN IS AWARE
[2018-09-04] MEDS ORDERED: POTASSIUM CHLORIDE 10 MEQ TABER PO SCH (15:00)
--- NOTE | 2018-09-04 15:25 | NUR ---
OBTAINED CONSENT FROM PATIENT FOR ABD CT WITH CONTRAST.
--- NOTE | 2018-09-04 15:52 | NUR ---
PT OFF THE UNIT FOR ABD CT WITH CONTRAST.
[2018-09-04 16:00] VITALS: BP 111/75
--- NOTE | 2018-09-04 16:10 | NUR ---
PT BACK ON UNIT FROM ABD CT SCAN. PT'S DAD IS VISITING AT BEDSIDE. PT'S VS ARE STABLE.
--- NOTE | 2018-09-04 18:29 | NUR ---
PT AMBULATED TO BATHROOM, NOW EATING DINNER. NO S/S OF DISTRESS. CALL LIGHT IS WITHIN REACH. FALL AND SEIZURE PRECAUTIONS MAINTAINED.
--- NOTE | 2018-09-04 19:15 | NUR ---
RECEIVED REPORT FROM DAY SHIFT NURSE. PT SLEEPING BUT EASILY AROUSABLE. NO S/S OF PAIN OR SOB. ON ROOM AIR. SKIN INTACT. PT HAS FLAKY SKIN ON THE FACE. IV TO LEFT WRIST #18G, D5NS AT 150 ML/HR, INFUSING WELL. FALL AND SEIZURE PRECAUTIONS IN PLACE.
--- NOTE | 2018-09-04 19:30 | NUR ---
PT ENDORSED TO SHOP ROUTER NURSE IN STABLE CONDITION
[2018-09-04 20:00] VITALS: BP 118/80
[2018-09-04] MEDS: LACTULOSE 20 GM/30 ML UDC PO SCH (21:49)
[2018-09-04] MEDS: traZODone 50 MG TAB PO SCH (21:49)
[2018-09-04] MEDS: LORazepam 1 MG TAB PO SCH (21:49)
--- NOTE | 2018-09-04 21:50 | NUR ---
DUE MEDS GIVEN. PT TOLERATED WELL. DENIES PAIN. SAFETY AND SEIZURE PRECAUTIONS IN PLACE.
--- NOTE | 2018-09-04 23:21 | NUR ---
PT C/O PAIN 01/05. NORCO 5/325 MG PO GIVEN.
[2018-09-05] VITALS: BP 128/86
--- NOTE | 2018-09-05 01:50 | NUR ---
PT RESTING IN BED WITH EYES CLOSED. RESP EVEN AND UNLABORED. NO S/S OF PAIN OR DISCOMFORT.
[2018-09-05 04:00] VITALS: BP 122/76
--- NOTE | 2018-09-05 04:30 | NUR ---
PT SLEEPING. NO S/S OF PAIN OR SOB. NO SEIZURE ACTIVITY NOTED.
[2018-09-05] MEDS: LORazepam 1 MG TAB PO SCH ×3 (04:40→20:29)
[2018-09-05] MEDS: DEXT 5% /NACL 0.9% 1,000 ML IV SCH (05:14)
[2018-09-05] MEDS: HYDROcodone/APAP 5/325 MG 1 TAB TAB PO PRN (05:25)
--- NOTE | 2018-09-05 05:30 | NUR ---
DUE IV ANTIBIOTIC ADMINISTERED. NO ADVERSE REACTION NOTED.
[2018-09-05 06:18] LABS: T4 (THYROXINE) 4.9 ug/dL (4.5-12.0)
[2018-09-05 06:22] LABS: BASOPHILS % (AUTO) 1.2 % (0.0-2.0); EOSINOPHILS # (AUTO) 0.1 K/uL (0-0.4); HEMATOCRIT 39.8 % (36-52); HEMOGLOBIN 13.4 g/dL (12.0-18.0); LYMPHOCYTES # (AUTO) 0.3 K/uL (2.0-11.5); LYMPHOCYTES % (AUTO) 8.2 % (20.5-51.1); MEAN CORPUSCULAR HEMOGLOBIN 33 pg (27-31); MEAN CORPUSCULAR HGB CONC 34 g/dL (33-37); MEAN CORPUSCULAR VOLUME 98.2 fL (80-94); MONOCYTES # (AUTO) 0.3 K/uL (0.8-1.0); MONOCYTES % (AUTO) 7.8 % (1.7-9.3); NEUTROPHILS # (AUTO) 3.2 K/uL (1.8-7.7); NEUTROPHILS % (AUTO) 79.8 % (42.2-75.2); PLATELET COUNT (AUTO) 109 K/uL (140-450); RED BLOOD CELL COUNT(AUTO) 4.05 MIL/uL (4.20-6.10); RED CELL DISTRIBUTION WIDTH 13.8 % (11.6-13.7)
[2018-09-05 06:38] LABS: MAGNESIUM 1.8 mg/dL (1.8-2.4); PHOSPHORUS 3.4 mg/dL (2.5-4.9)
[2018-09-05 06:54] LABS: AMYLASE 132 U/L (25-115); ANION GAP 5.5 (8-16); CARBON DIOXIDE 29.8 mmol/L (21-32); CREATININE 0.5 mg/dL (0.7-1.3); POTASSIUM 3.3 mmol/L (3.5-5.1)
[2018-09-05 06:58] LABS: ALBUMIN 3.8 g/dL (3.4-5.0); BILIRUBIN,DIRECT 0.5 mg/dL (0.0-0.3); TOTAL BILIRUBIN 1.5 mg/dL (0.0-1.0)
[2018-09-05 07:05] LABS: LIPASE 1855 U/L (73-393)
--- NOTE | 2018-09-05 07:30 | NUR ---
ENDORSED PT TO DAY SHIFT NURSE. PT IN STABLE CONDITION.
--- NOTE | 2018-09-05 07:32 | NUR ---
RECEIVED BEDSIDE REPORT FROM CHIEF OF PARTY NURSE. AOX4. DENIES PAIN. RA. NO SIGNS OF DISTRESS NOTED. IV ON L WRIST 18G, PATENT AND INTACT, INFUSING PER MD ORDER. IV SITE CLEAN AND DRY. FACE HAS DRY SKIN, OTHERWISE SKIN IS INTACT AND DRY. RESPIRATION IS EVEN AND UNLABORED. AMBULATE WITH ASSIST, URANAL IS BY BEDSIDE. INSTRUCTED PATIENT TO USE THE CALL LIGHT FOR ANY ASSISTANCE. SAFETY MEASURES IN PLACE. BED IN LOW POSITION, CALL LIGHT WITHIN REACH.
[2018-09-05 08:00] VITALS: BP 138/95
[2018-09-05] MEDS: LACTULOSE 20 GM/30 ML UDC PO SCH (08:22)
[2018-09-05] MEDS: levETIRAcetam 500 MG TAB PO SCH ×2 (08:23→20:29)
[2018-09-05] MEDS: FOLIC ACID 1 MG TAB PO SCH (08:24)
[2018-09-05] MEDS: THIAMINE 100 MG TAB PO SCH (08:25)
[2018-09-05] MEDS: MULTIVITAMIN 1 TAB PO SCH (08:26)
[2018-09-05] MEDS: LACTOBACILLUS RHAMNOSUS GG 1 EACH CAP PO SCH (08:26)
[2018-09-05] MEDS: PETROLATUM WHITE 30 GM TUBE TP SCH (08:27)
[2018-09-05] MEDS: KETOCONAZOLE 2% 15 GM TUBE TP SCH ×2 (08:27→20:34)
--- NOTE | 2018-09-05 08:35 | NUR ---
ADMINISTERED MEDS PER MD. MEDICATION EDUCATION PROVIDED. PT TOLERATED WELL. NO SIGNS OF DISTRESS NOTED.
--- NOTE | 2018-09-05 10:33 | NUR ---
PT IS SLEEPING AT THIS TIME. NO SIGNS OF DISTRESS NOTED.
[2018-09-05] MEDS: NACL 0.9% 1,000 ML IV SCH ×2 (10:54→20:00)
[2018-09-05] MEDS ORDERED: POTASSIUM CHLORIDE 40 MEQ, LIDOCAINE 1% 25 MG in NACL 0.9% 250 ML IV SCH (11:30)
--- NOTE | 2018-09-05 11:56 | NUR ---
ASSISTED PT TO USE THE BATHROOM. HE HAS A BM. PT'S DAD IS AT BEDSIDE.
--- NOTE | 2018-09-05 16:01 | NUR ---
PT C/O ANXIETY ATTACK AND FELT RESTLESS. PT'S DAD IS AT BEDSIDE. WILL MEDICATED WITH PRN ATIVAN.
[2018-09-05] MEDS: LORazepam 2 MG/ML VIAL IVP PRN ×2 (16:04→23:47)
--- NOTE | 2018-09-05 19:10 | NUR ---
BEDSIDE REPORT GAVE TO DIGITAL PRODUCT MANAGER NURSE. PT IS IN STABLE CONDITION.
--- NOTE | 2018-09-05 19:11 | NUR ---
RECEIVED BEDSIDE REPORT AM SHIFT NURSE. AOX4. DENIES PAIN. PT. IS MEDSURG PATIENT. NO SIGNS OF DISTRESS NOTED. NO COMPLAINTS OF PAIN. IV ON L WRIST 18G, PATENT AND INTACT, INFUSING PER MD ORDER. IV SITE CLEAN AND DRY. FACE HAS DRY SKIN, OTHERWISE SKIN IS INTACT AND DRY. RESPIRATION IS EVEN AND UNLABORED. AMBULATE WITH ASSIST, URINAL IS BY BEDSIDE. INSTRUCTED PATIENT TO USE THE CALL LIGHT FOR ANY ASSISTANCE. SAFETY MEASURES IN PLACE. BED IN LOW POSITION, CALL LIGHT WITHIN REACH.
[2018-09-05 20:00] VITALS: BP 128/88
[2018-09-05] MEDS: traZODone 50 MG TAB PO SCH (20:28)
--- NOTE | 2018-09-05 20:29 | NUR ---
PT MEDICATED, TOLERATED MEDS WELL, CAN SWALLOW. PT WAS OFFERED A BATH. PT REFUSED FOR TONIGHT.
--- NOTE | 2018-09-05 20:33 | NUR ---
PT REFUSED NIZORAL CREAM TONIGHT. HE WANTS IT TO SCHEDULED IN THE MORNING
--- NOTE | 2018-09-05 23:14 | NUR ---
PT SLEEPING AT THIS TIME, NO COMPLAINTS.
--- NOTE | 2018-09-05 23:51 | NUR ---
PT SAID HE FEELS LIKE HE IS GOING TO HAVE A SEIZURE. PT ANXIOUS, ATIVAN IV PRN ORDERED GIVEN
[2018-09-06 04:00] VITALS: BP 129/80
[2018-09-06] MEDS: LORazepam 1 MG TAB PO SCH ×3 (05:40→20:42)
[2018-09-06] MEDS: MORPHINE SULFATE 2 MG/ML SYR IVP PRN ×2 (05:41→14:37)
[2018-09-06 06:21] LABS: HEPATITIS A ANTIBODY IGM Negative (Negative); HEPATITIS B CORE AB TOTAL Negative (Negative); HEPATITIS B SURFACE ANTIBODY Non Reactive (.); HEPATITIS B SURFACE ANTIGEN Negative (Negative)
[2018-09-06] MEDS: NACL 0.9% 1,000 ML IV SCH ×3 (06:32→22:40)
[2018-09-06 07:28] LABS: BASOPHILS # (AUTO) 0.1 K/uL (0.00-0.22); BASOPHILS % (AUTO) 2.5 % (0.0-2.0); EOSINOPHILS # (AUTO) 0.1 K/uL (0-0.4); EOSINOPHILS % (AUTO) 3.1 % (0.0-4.0); HEMATOCRIT 39.7 % (36-52); HEMOGLOBIN 13.6 g/dL (12.0-18.0); LYMPHOCYTES # (AUTO) 0.3 K/uL (2.0-11.5); LYMPHOCYTES % (AUTO) 8.9 % (20.5-51.1); MEAN CORPUSCULAR HEMOGLOBIN 33 pg (27-31); MEAN CORPUSCULAR HGB CONC 34 g/dL (33-37); MONOCYTES # (AUTO) 0.5 K/uL (0.8-1.0); MONOCYTES % (AUTO) 13.3 % (1.7-9.3); NEUTROPHILS # (AUTO) 2.8 K/uL (1.8-7.7); NEUTROPHILS % (AUTO) 72.2 % (42.2-75.2); PLATELET COUNT (AUTO) 131 K/uL (140-450); RED BLOOD CELL COUNT(AUTO) 4.09 MIL/uL (4.20-6.10); RED CELL DISTRIBUTION WIDTH 13.6 % (11.6-13.7); WHITE BLOOD COUNT (AUTO) 3.8 K/uL (4.8-10.8)
--- NOTE | 2018-09-06 07:28 | NUR ---
ENDORSED TO NEXT SHIFT FOR CONTINUITY OF CARE. PT IN STABLE CONDITION
--- NOTE | 2018-09-06 07:29 | NUR ---
RECEIVED BEDSIDE REPORT FROM DRU LEMOS. PT STABLE, AWAKE, AND ALERT. NO SIGNS OF DISTRESS NOTED. NO REDNESS SWELLING OR INFLAMMATION NOTED ON IV SITE. DENIES PAIN. NO SEIZURE ACTIVITY NOTED. BED RAILS PADDED. CALL SHARP WITHIN REACH. SAFETY MEASURES IN PLACE. PLAN OF CARE REVIEWED.
[2018-09-06 07:32] LABS: ALBUMIN 3.8 g/dL (3.4-5.0); ANION GAP 8.7 (8-16); CARBON DIOXIDE 26.7 mmol/L (21-32); CREATININE 0.5 mg/dL (0.7-1.3); MAGNESIUM 1.6 mg/dL (1.8-2.4); PHOSPHORUS 4.3 mg/dL (2.5-4.9); POTASSIUM 3.4 mmol/L (3.5-5.1); TOTAL BILIRUBIN 1.3 mg/dL (0.0-1.0)
[2018-09-06 08:00] VITALS: BP 125/91
[2018-09-06] MEDS: PETROLATUM WHITE 30 GM TUBE TP SCH (09:00)
[2018-09-06] MEDS: KETOCONAZOLE 2% 15 GM TUBE TP SCH ×2 (09:00→20:46)
[2018-09-06] MEDS: MULTIVITAMIN 1 TAB PO SCH (09:47)
[2018-09-06] MEDS: LACTOBACILLUS RHAMNOSUS GG 1 EACH CAP PO SCH (09:47)
[2018-09-06] MEDS: LACTULOSE 20 GM/30 ML UDC PO SCH (09:47)
[2018-09-06] MEDS: levETIRAcetam 500 MG TAB PO SCH ×2 (09:48→20:43)
[2018-09-06] MEDS: FOLIC ACID 1 MG TAB PO SCH (09:48)
[2018-09-06] MEDS: THIAMINE 100 MG TAB PO SCH (09:48)
[2018-09-06] MEDS: LORazepam 2 MG/ML VIAL IVP PRN ×2 (09:49→17:29)
--- NOTE | 2018-09-06 09:50 | NUR ---
ADMINISTERED SCHEDULED MEDICATIONS AND PRN ATIVAN FOR ANXIETY. PT TOLERATED WELL. NO OTHER NEEDS AT THIS TIME.
[2018-09-06] MEDS: ONDANSETRON 4 MG/2 ML VIAL IM/IVP PRN ×2 (10:35→17:30)
--- NOTE | 2018-09-06 10:40 | NUR ---
ADMINISTERED PRN ZOFRAN FOR NAUSEA.
--- NOTE | 2018-09-06 13:50 | NUR ---
DR. ANDERSON AT THE BEDSIDE.
[2018-09-06] MEDS ORDERED: POTASSIUM CHLORIDE 40 MEQ, LIDOCAINE MPF 1% - 5 mL VIAL 25 MG in NACL 0.9% 250 ML IV SCH (14:00)
--- NOTE | 2018-09-06 14:34 | NUR ---
ADMINISTERED SCHEDULED MEDICATIONS. PT TOLERATED WELL. NO OTHER NEEDS AT THIS TIME. FATHER AT THE BEDSIDE.
[2018-09-06 16:00] VITALS: BP 120/84
--- NOTE | 2018-09-06 17:29 | NUR ---
ADMINISTERED SCHEDULED MEDICATIONS. PT TOLERATED WELL. NO OTHER NEEDS AT THIS TIME. FATHER AT THE BEDSIDE.
[2018-09-06] MEDS ORDERED: POTASSIUM CHLORIDE 10 MEQ TABER PO SCH (18:00)
--- NOTE | 2018-09-06 19:25 | NUR ---
ENDORSED PATIENT TO HOSPICE VOLUNTEER NURSE FOR CONTINUITY OF CARE. PT STABLE, AWAKE, AND ALERT.
--- NOTE | 2018-09-06 19:26 | NUR ---
RECD. RESTING IN BED, AWAKE, A/OX3. NOTED FLAKY SKIN ON THE FACE, PINKISH RED COLOR. RESPIRATION EVEN AND UNLABORED. IV OF NS AT 150 ML/HR INFUSING. ON SEIZURE PRECAUTION, SIDE RAILS PADDED. PLAN OF CARE FOR THE SHIFT DISCUSSED. VERBALIZED UNDERSTANDING. DENIES PAIN 0/10.
[2018-09-06] MEDS: traZODone 50 MG TAB PO SCH (20:43)
--- NOTE | 2018-09-06 20:43 | NUR ---
WATCHING TV. DUE PO MEDICATIONS GIVEN.
--- NOTE | 2018-09-06 20:45 | NUR ---
DUE PO MEDICATIONS GIVEN.
--- NOTE | 2018-09-06 21:00 | NUR ---
Patient's Plan of Care was discussed and reviewed with HAND SPRING FORMER: ORA GABRIEL
--- NOTE | 2018-09-07 | NUR ---
SLEEPING COMFORTABLY IN BED.
[2018-09-07] MEDS ORDERED: MAG SULF 2000 MG/WATER PREMIX 50 ML IV SCH (01:30)
[2018-09-07 04:09] VITALS: BP 109/88
[2018-09-07] MEDS: LORazepam 2 MG/ML VIAL IVP PRN ×3 (04:11→18:40)
--- NOTE | 2018-09-07 04:11 | NUR ---
WITH ANXIETY, MEDICATED WITH ATIVAN 2 MG. IVP BY DRU DOLAN.
--- NOTE | 2018-09-07 04:45 | NUR ---
NO ANXIETY, SLEEPING COMFORTABLY IN BED.
[2018-09-07] MEDS: LORazepam 1 MG TAB PO SCH ×3 (05:00→20:23)
[2018-09-07] MEDS: NACL 0.9% 1,000 ML IV SCH ×4 (05:20→16:27)
--- NOTE | 2018-09-07 07:25 | NUR ---
STILL SLEEPING COMFORTABLY. ENDORSED TO AM SHIFT NURSE FOR CONTINUITY OF CARE.
--- NOTE | 2018-09-07 07:26 | NUR ---
RECEIVED REPORT FROM FINGER BUFF SEWER NURSE. PATIENT LYING DOWN IN BED SLEEPING, AROUSABLE BY VOICE. NO DISTRESS NOTED. DENIES ANY PAIN AT THIS TIME. RESPIRATION EVEN, UNLABORED, ON ROOM AIR. AAOX3, CALM, COOPERATIVE, SKIN COLOR APPROPRIATE TO ETHNICITY, WARM TO TOUCH. SKIN INTACT, HOWEVER, FLAKY SKIN NOTED ON FACE. MD ALREADY AWARE. ABDOMEN SOFT. IV SITE INTACT, PATENT, AND INFUSING IVF PER MD ORDERS. REVIEWED PLAN OF CARE WITH PATIENT. PATIENT VERBALIZED UNDERSTANDING. SAFETY MEASURES IN PLACE, CALL LIGHT WITHIN REACH. WILL CONTINUE TO MONITOR.
[2018-09-07 07:58] LABS: ANION GAP 7.4 (8-16); CARBON DIOXIDE 26.5 mmol/L (21-32); CREATININE 0.5 mg/dL (0.7-1.3); POTASSIUM 3.9 mmol/L (3.5-5.1)
[2018-09-07 08:00] VITALS: BP 131/92
[2018-09-07 08:01] LABS: MAGNESIUM 2.2 mg/dL (1.8-2.4); PHOSPHORUS 4.4 mg/dL (2.5-4.9)
[2018-09-07 08:06] LABS: HEMATOCRIT 39.8 % (36-52); HEMOGLOBIN 13.3 g/dL (12.0-18.0); MEAN CORPUSCULAR HEMOGLOBIN 33 pg (27-31); MEAN CORPUSCULAR HGB CONC 33 g/dL (33-37); MEAN CORPUSCULAR VOLUME 98.1 fL (80-94); PLATELET COUNT (AUTO) 160 K/uL (140-450); RED BLOOD CELL COUNT(AUTO) 4.05 MIL/uL (4.20-6.10); RED CELL DISTRIBUTION WIDTH 13.7 % (11.6-13.7); WHITE BLOOD COUNT (AUTO) 3.3 K/uL (4.8-10.8)
[2018-09-07 08:22] LABS: LYMPHOCYTES % (MANUAL) 21 % (20-46); MONOCYTES % (MANUAL) 17 % (5-12)
[2018-09-07] MEDS: THIAMINE 100 MG TAB PO SCH (08:54)
[2018-09-07] MEDS: LACTULOSE 20 GM/30 ML UDC PO SCH (08:54)
[2018-09-07] MEDS: LACTOBACILLUS RHAMNOSUS GG 1 EACH CAP PO SCH (08:54)
[2018-09-07] MEDS: FOLIC ACID 1 MG TAB PO SCH (08:55)
[2018-09-07] MEDS: KETOCONAZOLE 2% 15 GM TUBE TP SCH ×2 (08:55→20:24)
[2018-09-07] MEDS: MULTIVITAMIN 1 TAB PO SCH (08:55)
[2018-09-07] MEDS: PETROLATUM WHITE 30 GM TUBE TP SCH (08:55)
[2018-09-07] MEDS: levETIRAcetam 500 MG TAB PO SCH ×2 (08:55→20:23)
[2018-09-07] MEDS: ONDANSETRON 4 MG/2 ML VIAL IM/IVP PRN (08:59)
[2018-09-07] MEDS: MORPHINE SULFATE 2 MG/ML SYR IVP PRN ×2 (08:59→16:28)
[2018-09-07] MEDS ORDERED: PARoxetine 10 MG TAB PO SCH (09:00)
--- NOTE | 2018-09-07 09:12 | NUR ---
PATIENT LYING IN BED WATCHING TV. COMPLAINS OF ABD PAIN AND NAUSEA. MORPHINE AND ZOFRAN GIVEN. OTHER SCHEDULED MEDICATIONS DUE GIVEN. WILL CONTINUE TO MONITOR.
--- NOTE | 2018-09-07 09:56 | NUR ---
PATIENT LYING DOWN IN BED FEELING ANXIOUS, REPORTS STARTING TO GET SHAKY. ATIVAN GIVEN PER MD ORDERS. WILL CONTINUE OT MONITOR.
--- NOTE | 2018-09-07 12:15 | NUR ---
PATIENT SITTING IN BED WITH LUNCH TRAY IN FRONT. NO DISTRESS NOTED. DENIES ANY NAUSEA/VOMITING. CONDITION UNCHANGED. WILL CONTINUE TO MONITOR.
[2018-09-07 15:00] LABS: ALBUMIN 3.8 g/dL (3.4-5.0); BILIRUBIN,DIRECT 0.4 mg/dL (0.0-0.3); TOTAL BILIRUBIN 1.1 mg/dL (0.0-1.0)
[2018-09-07 16:00] VITALS: BP 119/84
--- NOTE | 2018-09-07 16:30 | NUR ---
PATIENT COMPLAINS OF ABD PAIN, MORPHINE GIVEN. DR. KAMARA AT BEDSIDE REVIEWING PLAN OF CARE WITH PATIENT. WILL CONTINUE TO MONITOR.
[2018-09-07] MEDS: AMYLASE/LIPASE/PROTEASE 1 CAPDR PO SCH (18:36)
--- NOTE | 2018-09-07 18:46 | NUR ---
PATIENT COMPLAINS OF ANXIETY, ATIVAN GIVEN. DENIES ANY NAUSEA/VOMITING OR ABD PAIN AT THIS TIME AFTER EATING CARDIAC DIET. WILL CONTINUE TO MONITOR.
--- NOTE | 2018-09-07 19:30 | NUR ---
GAVE REPORT TO CHANNELER INSOLE NURSE FOR CONTINUITY OF CARE. PATIENT IN STABLE CONDITION.
--- NOTE | 2018-09-07 19:35 | NUR ---
RECEIVED ENDORSEMENT FROM AM RN. PATIENT A/Ox4, ABLE TO MAKE NEEDS KNOWN. INTRODUCED SELF, UPDATED BOARD. NO SIGNS OF SOB OR DISTRESS NOTED. IV ON LEFT WRIST. 18 GAUGE, INTACT, NO S/SX OF REDNESS, INFECTION, SWELLING NOTED. NO SEIZURE ACTIVITY NOTED. BED RAILS PADDED. BED IN THE LOWEST POSITION, CALL LIGHT WITHIN REACH. SAFETY MEASURES IN PLACE. PLAN OF CARE REVIEWED. WILL CONTINUE TO MONITOR.
--- NOTE | 2018-09-07 23:30 | NUR ---
CHECKS MADE, VITALS TAKEN. NO DISTRESS NOTED. WILL CONTINUE TO MONITOR.
[2018-09-08] VITALS: BP 118/81
--- NOTE | 2018-09-08 01:10 | NUR ---
PATIENT ASLEEP, VISIBLE CHEST RISE AND FALL NOTED. WILL CONTINUE TO MONITOR.
--- NOTE | 2018-09-08 03:20 | NUR ---
FREQUENT CHECKS MADE. NO SOB OR DISTRESS NOTED.
--- NOTE | 2018-09-08 04:30 | NUR ---
PATIENT ROLLED ONTO IV SITE, REMOVING IT. TIP INTACT.
[2018-09-08] MEDS: LORazepam 1 MG TAB PO SCH (04:40)
[2018-09-08 06:36] LABS: ANION GAP 7.2 (8-16); CARBON DIOXIDE 30.6 mmol/L (21-32); CREATININE 0.6 mg/dL (0.7-1.3); POTASSIUM 3.8 mmol/L (3.5-5.1)
[2018-09-08 06:38] LABS: EOSINOPHILS # (AUTO) 0.1 K/uL (0-0.4); EOSINOPHILS % (AUTO) 3.4 % (0.0-4.0); HEMATOCRIT 40.9 % (36-52); HEMOGLOBIN 13.6 g/dL (12.0-18.0); LYMPHOCYTES # (AUTO) 0.8 K/uL (2.0-11.5); LYMPHOCYTES % (AUTO) 20.5 % (20.5-51.1); MEAN CORPUSCULAR HEMOGLOBIN 33 pg (27-31); MEAN CORPUSCULAR HGB CONC 33 g/dL (33-37); MEAN CORPUSCULAR VOLUME 98.7 fL (80-94); MONOCYTES # (AUTO) 0.9 K/uL (0.8-1.0); MONOCYTES % (AUTO) 23.1 % (1.7-9.3); NEUTROPHILS # (AUTO) 2.1 K/uL (1.8-7.7); PLATELET COUNT (AUTO) 209 K/uL (140-450); RED BLOOD CELL COUNT(AUTO) 4.14 MIL/uL (4.20-6.10); RED CELL DISTRIBUTION WIDTH 13.3 % (11.6-13.7)
[2018-09-08 06:45] LABS: MAGNESIUM 1.8 mg/dL (1.8-2.4); PHOSPHORUS 3.8 mg/dL (2.5-4.9)
--- NOTE | 2018-09-08 07:15 | NUR ---
ENDORSED PATIENT TO AM SHIFT RN. PATIENT IN STABLE CONDITION.
--- NOTE | 2018-09-08 07:16 | NUR ---
RECEIVED BEDSIDE REPORT FROM ROAD MACHINE RUNNER NURSE. PATIENT [id number]. PATIENT ON ROOM AIR, NO DISTRESS NOTED. SKIN DRY AND FLAKY ON FACE. PATIENT CONTINENT AND AMBULATORY. IV ON R HAND 22 G INFUSING NS AT 60. IV CLEAN DRY AND INTACT. FALL RISK PROTOCOL IN PLACE. SEIZURE PRECAUTIONS IN PLACE. PATIENT ON MED SURGE AND STANDARD PRECAUTIONS. BED IN LOW POSITION, CALL LIGHT WITHIN REACH WILL CONTINUE TO MONITOR.
[2018-09-08 08:00] VITALS: BP 111/81
[2018-09-08] MEDS: AMYLASE/LIPASE/PROTEASE 1 CAPDR PO SCH (08:32)
[2018-09-08] MEDS: LACTOBACILLUS RHAMNOSUS GG 1 EACH CAP PO SCH (08:32)
[2018-09-08] MEDS: levETIRAcetam 500 MG TAB PO SCH (08:32)
[2018-09-08] MEDS: LORazepam 2 MG/ML VIAL IVP PRN ×2 (08:32→11:53)
[2018-09-08] MEDS: FOLIC ACID 1 MG TAB PO SCH (08:33)
[2018-09-08] MEDS: THIAMINE 100 MG TAB PO SCH (08:33)
[2018-09-08] MEDS: MULTIVITAMIN 1 TAB PO SCH (08:33)
[2018-09-08 08:59] LABS: BILIRUBIN,DIRECT 0.5 mg/dL (0.0-0.3); TOTAL BILIRUBIN 1.4 mg/dL (0.0-1.0)
[2018-09-08 09:00] LABS: ALBUMIN 4.3 g/dL (3.4-5.0)
[2018-09-08] MEDS: KETOCONAZOLE 2% 15 GM TUBE TP SCH (09:00)
[2018-09-08] MEDS: PETROLATUM WHITE 30 GM TUBE TP SCH (09:00)
--- NOTE | 2018-09-08 09:15 | NUR ---
ADMINISTERED SCHEDULED MEDS AND ATIVAN PRN. PATIENT STATED HE WOKE UP FELLING ANXIOUS. PATIENT TOLERATED WELL. WILL CONTINUE TO MONITOR.
[2018-09-08] MEDS ORDERED: LIPA1CAP8 PO (10:01)
[2018-09-08] MEDS ORDERED: KETO2CRE4 TP (10:01)
[2018-09-08] MEDS: ONDANSETRON 4 MG/2 ML VIAL IM/IVP PRN (11:53)
--- NOTE | 2018-09-08 12:00 | NUR ---
PATIENT EATING LUNCH. PATIENT TOLERATED WELL. ON ROOM AIR, NO DISTRESS NOTED. WILL CONTINUE TO MONITOR.
--- NOTE | 2018-09-08 13:53 | NUR ---
EDUCATED PATIENT ON DISCHARGE INSTRUCTIONS. PATIENT INSTRUCTED TO FOLLOW UP WITH PCP WITHIN 1 WEEK. EDUCATED PATIENT OF NEWLY PRESCRIBED MEDS ELECTRONICALLY SENT TO PHARMACY AND TO CONTINUE HOME MEDS. PATIENT INSTRUCTED TO RETURN TO NEAREST ER WHEN FEVER, SOB, ETC ARISE. ANSWERED ALL QUESTIONS AND CONCERNS. REMOVED WRIST BAND AND IV. IV TIP INTACT.
[2018-09-09] MEDS ORDERED: ATI.5 PO (05:12)
== END 2018-09-08 14:20 | disposition home or self-care (01) | DRG 282 ==
LOC: MED 01:04 → MTU 04:34
PROVIDERS: ADMIT General Practice; ATTEND General Practice
DX: K85.20 Alcohol induced acute pancreatitis without necrosis or infection (principal); G93.41 Metabolic encephalopathy; D69.6 Thrombocytopenia, unspecified; E87.8 Other disorders of electrolyte and fluid balance, not elsewhere classified; E83.42 Hypomagnesemia; E87.1 Hypo-osmolality and hyponatremia; N39.0 Urinary tract infection, site not specified; K86.0 Alcohol-induced chronic pancreatitis; E87.6 Hypokalemia; G40.909 Epilepsy, unspecified, not intractable, without status epilepticus; F41.9 Anxiety disorder, unspecified; L21.9 Seborrheic dermatitis, unspecified; F32.9 Major depressive disorder, single episode, unspecified; J45.909 Unspecified asthma, uncomplicated; Z79.899 Other long term (current) drug therapy; Z82.49 Family history of ischemic heart disease and other diseases of the circulatory system; Z87.440 Personal history of urinary (tract) infections
CPT/HCPCS: 36415; 70450; 71045; 74170; 76700; 80048; 80053; 80076; 80305; 81001; 82140; 82150; 83036; 83605; 83615; 83690; 83735; 83880; 84100; 84436; 84443; 84484; 85025; 85610; 85730; 86704; 86706; 86708; 86709; 86803; 87040; 87081; 87086; 87340; 93005; 96365; 96367; 96375; 99285; G0480; G0482; J0696; J1885; J1953; J2001; J2060; J2270; J2405; J3475; J3480; J7030; J7042; J7060; Q0092; Q9967